=== PATIENT | male | born 1945 | race Caucasian/White ===

== ENCOUNTER 2024-11-09 12:21 | Emergency (ER) | payer MEDICARE, OTHER, SELFPAY ==
[2024-11-09 12:23] VITALS: BP 133/83
[2024-11-09 13:22] VITALS: BP 167/89
[2024-11-09 13:47] LABS: Hematocrit 38.3 % (39.0-52.0); Hemoglobin 12.9 g/dL (13.0-18.0); Mean Corp Hgb Conc. 33.7 g/dL (33.0-37.0); Mean Corpuscular Volume 93.4 fL (80.0-94.0); Nucleated Red Blood Cells % 0 % (-); Platelet Count 295 10^3/uL (130-400); Red Cell Dist. Width 13.6 % (11.5-14.5)
--- NOTE | 2024-11-09 13:48 | ED.GENMED ---
History of Present Illness
General
Chief Complaint: Throat Problem
Time Seen by Provider: 11/09/24 13:22
History of Present Illness
History of Present Illness:
Patient is a 79-year-old male with history of hyperlipidemia presenting to the emergency department with generalized weakness and fatigue. Patient states for the past year he has had no motivation and is not interested in activity. He states that
he is eating less. He feels weak. Intermittently will get lightheaded dizzy especially upon moving. He is trying to force himself to eat though his food intake has decreased. He only drinks a few glasses of water a day. No chest pain. No
shortness of breath. No nausea vomiting diarrhea. No abdominal pain. No numbness tingling. No weakness. Has not seen a primary care doctor in years.
Past History
Social History
Tobacco: Smoker
Personal:
Phy Exam
Physical Exam
Physical Exam:
GENERAL: in no acute distress
HEENT: normocephalic, extraocular movements intact, dry oral mucosa
NECK: normal inspection
RESPIRATORY: no respiratory distress, clear to auscultation bilaterally
CARDIOVASCULAR: regular rate and rhythm
ABDOMEN/: soft, non-distended, non-tender to palpation, no rebound or guarding
EXTREMITIES: non-tender, no edema/swelling
NEUROLOGIC: awake and alert, moves all extremities
SKIN: warm
Course
Orders/Labs/Results
Orders:
Orders
11/09/24 13:24
CMP [Comprehensive Metabolic Panel] Urgent
Complete Blood Count/With Diff Urgent
Magnesium Urgent
Comment: ADD ON
TSH Reflex To Free T4 Urgent
11/09/24 13:46
Add On- LAB Urgent
Tests Added?: Mg, TSH
Electrocardiogram (*1) Urgent
Reason for Study: Shortness of Breath
11/09/24 13:47
EKG- Treatment ONCE
Abnormal Lab Results
11/09/24
13:24
RBC 4.10 L 10^6/uL
(4.70-6.10)
Hgb 12.9 L g/dL
(13.0-18.0)
Hct 38.3 L %
(39.0-52.0)
MCH 31.5 H pg
(27.0-31.0)
Chloride 109 H mmol/L
(98-107)
BUN 21 H mg/dl
(9-20)
Glucose 106 H mg/dl
(70-99)
11/09/24 13:24
11/09/24 13:24
Vital Signs
Initial and Last Documented VS:
Initial Vital Signs
Temp Pulse Resp BP Pulse Ox
98.1 F 85 15 133/83 96
11/09/24 12:23 11/09/24 12:23 11/09/24 12:23 11/09/24 12:23 11/09/24 12:23
Last Documented Vital Signs
Temp Pulse Resp BP Pulse Ox
98.1 F 85 15 153/83 98
11/09/24 12:23 11/09/24 12:23 11/09/24 12:23 11/09/24 14:00 11/09/24 14:30
MDM/Problems Addressed
Differential Diagnosis Includes:
Patient is a 79-year-old man presenting to the emergency department with generalized weakness decreased p.o. and low energy for the past few months. On arrival vitals unremarkable exam does show dry oral mucosa. Differential consist of metabolic
derangement versus thyroid abnormality versus deconditioning. Is reassuring that patient's abdominal exam is benign. After shared decision making we will check blood work. Will give p.o. fluids.
*Pulse Oximetry
SaO2: 97
Patient hypoxic: no
*Critical Care Note
Total Time (30-74mins, 75-104mins- exclusive of procedures): Not Applicable
Update Note
Update Note:
Labs reassuring. Patient aware to follow-up with primary care doctor. He will try to increase his p.o. intake. We did discuss finding activities as well to fill-up his time again.
ED Attending Note
-
Portions of this chart may have been created with voice recognition software.� Occasional wrong word or��sound alike� substitutions may have occurred due to the inherent limitations of voice recognition software.
Discharge Plan
Departure
Patient Disposition: Home (Routine Discharge)
Date of Disposition: 11/09/24
Time of Disposition: 15:27
Patient with high blood pressure during this ER visit?: No
Discharge Problem:
Weakness, Fatigue
Instructions: Weakness - ED discharge instructions
Prescriptions:
No Action
No Current Medications
0
Referrals:
[facility] [Provider Group]
NONE,* [Family Provider, Internal Medicine]
Activity Restrictions/Additional Instructions:
You were seen in the Emergency Department today for generalized weakness. While you were here we performed blood work, which was reassuring.
We would like for you to follow up with your primary care physician for further evaluation. If you experience fever, worsening of your symptoms, or develop any other new or concerning symptoms, please return to the Emergency Department immediately.
Please see the attached sheet for additional information.
Interventions
Interventions:
*Risk Screen - Suicide Last Done: 11/09/24 12:23
*General Assessment Last Done: 11/09/24 12:23
*Neglect/Abuse Screening Last Done: 11/09/24 12:23
*ED COVID-19 Vaccine History Last Done: 11/09/24 12:23
ED- Pulmonary Assessment Last Done: 11/09/24 13:15
Discharge Date and Time
Print Language: Mandarin [place]
[2024-11-09 13:50] LABS: ALT (SGPT) 16 U/L (0-50); AST (SGOT) 22 U/L (17-59); Albumin 4.0 g/dl (3.5-5.0); Alkaline Phosphatase 57 U/L (38-126); Blood Urea Nitrogen 21 mg/dl (9-20); Calcium 9.4 mg/dl (8.4-10.2); Carbon Dioxide 25 mmol/L (22-30); Chloride 109 mmol/L (98-107); Glucose 106 mg/dl (70-99); Potassium 4.3 mmol/L (3.5-5.1); Sodium 138 mmol/L (135-145); Total Protein 6.7 g/dl (6.3-8.2); eGFR > 60.00
[2024-11-09 14:00] VITALS: BP 153/83
[2024-11-09 14:04] LABS: Magnesium 2.1 mg/dl (1.6-2.3)
[2024-11-09 15:00] VITALS: BP 141/76
== END 2024-11-09 15:56 | disposition home or self-care (01) ==
LOC: EMR 12:21
PROVIDERS: EMERGENCY PHYSICIAN Student in an Organized Health Care Education/Training Program
DX: R53.83 Other fatigue (principal); R53.1 Weakness; R42 Dizziness and giddiness; R63.0 Anorexia; E78.5 Hyperlipidemia, unspecified; F17.200 Nicotine dependence, unspecified, uncomplicated
CPT/HCPCS: 99283; 80053; 83735; 84443; 85025; 93005

== ENCOUNTER 2025-01-24 09:06 | Emergency (ER) | payer MEDICARE, OTHER, SELFPAY ==
[2025-01-24 09:15] VITALS: BP 118/72
--- NOTE | 2025-01-24 10:54 | ED.GENMED ---
History of Present Illness
General
Chief Complaint: Musculo-Skeletal Complaint
Source: patient
Exam Limitations: none
Time Seen by Provider: 01/24/25 10:20
Nursing documentation reviewed up to this point in time: agreed with
History of Present Illness
History of Present Illness:
79 yr. male presents to the ED for evaluation. Language line used. Patient reports for the past 4 days he has had pain to the right buttock area. He denies any injury. He does live alone has not taken any medicine for the pain. He denies any
trauma. He denies any radiation of pain. He denies any abdominal pain nausea vomiting fever chills. He denies any issues with urination. He is able to walk with the pain denies any increased pain with movement or walking .he reports he has'
hyperplasia of the prostate' diagnosed years ago. He has not been to a doctor in many years.
He lives alone.
Past History
Social History
Tobacco: Smoker
Personal:
Phy Exam
General Physical Exam
General Presentation: no apparent distress
General age: appears stated age
General Skin: warm and dry
General Habitus: elderly
General Mental: alert
General Hydration: appears well hydrated
Cardiovascular Exam
Cardiovascular Exam: regular rate/rhythm, no murmur and normal peripheral pulses
Pulmonary Exam
Pulmonary Exam: lungs clear and no respiratory distress
Neurological Exam
Neurological Exam: alert and oriented x3
Musculoskeletal Exam
Musculoskeletal Exam: full ROM and other (Normal inspection to back and buttocks mildly tender to the right lateral buttocks no erythema good range of motion full range of motion of bilateral hips)
Skin Exam
Skin Exam: normal color and warm/dry
Psychiatric Exam
Psychiatric Exam: normal mood/affect
Course
Orders/Labs/Results
Orders:
Orders
01/24/25 10:56
IV Insert/Care/Rem.- Treatment PRN
Acetaminophen [Tylenol] 650 mg PO NOW STA
Lidocaine [Lidocaine 4% Patch] 1 patch TOPICAL NOW STA
Apply Lidocaine patch(s) to:: right buttock
Hip, Right 2-3 Views [CR Hip - RT w/wo Pel 2-3 Vw*] Urgent
Comment:
Reason For Exam: pain
Include a pelvis x-ray?: Yes
Lumbar Spine Complete, 4 View [CR Lumbar Spine Comp Min 4 Vw*] Urgent
Comment:
Reason For Exam: pain
01/24/25 11:31
Complete Blood Count/With Diff Urgent
Comprehensive Metabolic Panel Urgent
01/24/25 12:30
Ketorolac [Toradol] 15 mg IV NOW STA
Abnormal Lab Results
01/24/25
11:31
RBC 4.24 L 10^6/uL
(4.70-6.10)
MCH 31.4 H pg
(27.0-31.0)
BUN 22 H mg/dl
(9-20)
01/24/25 11:31
01/24/25 11:31
Vital Signs
Initial and Last Documented VS:
Initial Vital Signs
Temp Pulse Resp BP Pulse Ox
98.5 F 82 18 118/72 95
01/24/25 09:15 01/24/25 09:15 01/24/25 09:15 01/24/25 09:15 01/24/25 09:15
Last Documented Vital Signs
Temp Pulse Resp BP Pulse Ox
98.5 F 65 16 121/70 98
01/24/25 09:15 01/24/25 13:51 01/24/25 13:51 01/24/25 13:51 01/24/25 13:51
MDM/Problems Addressed
Differential Diagnosis Includes:
Not limited to muscular back pain muscle sprain strain
MDM/Problems Addressed:
Symptoms are likely muscular. Patient points to his right posterior buttock region. no trauma no injury on exam. He has been able to ambulate here in the ER no acute distress as documented above language line was used for translation and patient
denies any injury no nausea vomiting fever chills chest pain shortness of breath no radiation of pain. No bowel or bladder incontinence normal labs. His x-rays lumbar spine hip were negative for acute findings positive degenerative disease.\\I did
check labs prior to giving patient Toradol as he reported he has not been to a doctor in years and his labs are unremarkable with normal kidney function.
Patient was given Tylenol lidocaine patch and Toradol will DC with [facility]
*Radiology
Radiology exam reviewed: radiology read reviewed
*Pulse Oximetry
SaO2: 95
Oxygen Mode of Delivery: Room air
Patient hypoxic: no
*Critical Care Note
Total Time (30-74mins, 75-104mins- exclusive of procedures): Not Applicable
ED Attending Note
-
Portions of this chart may have been created with voice recognition software.� Occasional wrong word or��sound alike� substitutions may have occurred due to the inherent limitations of voice recognition software.
Discharge Plan
Departure
Patient Disposition: Home (Routine Discharge)
Date of Disposition: 01/24/25
Time of Disposition: 13:43
Patient with high blood pressure during this ER visit?: Yes
Condition: Fair
Covid-19: Not Applicable
Discharge Problem:
Muscle pain
Instructions: Muscle and Bone Pain (DC), BLOOD PRESSURE
Prescriptions:
New
lidocaine 5 % adhesive patch,medicated
1 patch topical DAILY Qty: 15 0RF
Referrals:
[facility] [Provider Group]
UNKNOWN - PT DOES,NOT KNOW [Family Provider]
Activity Restrictions/Additional Instructions:
Tylenol or ibuprofen as needed for pain.
A prescription for lidocaine patches sent to your pharmacy take as directed. Follow-up with [facility] in the next 2 days call today to make an appointment return if any worsening of symptoms.
Interventions
Interventions:
*Risk Screen - Suicide Last Done: 01/24/25 09:15
*General Assessment Last Done: 01/24/25 09:15
*Neglect/Abuse Screening Last Done: 01/24/25 09:15
*ED- Fall Risk Assessment Last Done: 01/24/25 13:51
*ED COVID-19 Vaccine History Last Done: 01/24/25 13:51
*Nursing Disposition Last Done: 01/24/25 13:51
ED- Cardiac Assessment Last Done: 01/24/25 11:27
ED-Musculoskeletal Assessment Last Done: 01/24/25 11:27
ED- Neurological Assessment Last Done: 01/24/25 11:27
ED- Pulmonary Assessment Last Done: 01/24/25 11:27
Discharge Date and Time
Discharge Date/Time: 01/24/25 14:24
Print Language: Mandarin Thai
[2025-01-24] MEDS: TYLENOL 650 MG PO (11:24)
[2025-01-24] MEDS: LIDOCAINE 4% PATCH 1 PATCH TOPICAL (11:25)
[2025-01-24 11:31] VITALS: BP 162/85
[2025-01-24 11:46] LABS: Hematocrit 39.7 % (39.0-52.0); Hemoglobin 13.3 g/dL (13.0-18.0); Mean Corp Hgb Conc. 33.5 g/dL (33.0-37.0); Mean Corpuscular Volume 93.6 fL (80.0-94.0); Nucleated Red Blood Cells % 0 % (-); Platelet Count 245 10^3/uL (130-400); Red Cell Dist. Width 13.4 % (11.5-14.5)
[2025-01-24 12:14] LABS: ALT (SGPT) 16 U/L (0-50); AST (SGOT) 24 U/L (17-59); Albumin 4.2 g/dl (3.5-5.0); Alkaline Phosphatase 45 U/L (38-126); Blood Urea Nitrogen 22 mg/dl (9-20); Calcium 9.5 mg/dl (8.4-10.2); Carbon Dioxide 26 mmol/L (22-30); Chloride 107 mmol/L (98-107); Glucose 84 mg/dl (70-99); Potassium 4.5 mmol/L (3.5-5.1); Sodium 137 mmol/L (135-145); Total Protein 7.1 g/dl (6.3-8.2); eGFR > 60.00
[2025-01-24] MEDS: TORADOL 15 MG IV (12:40)
[2025-01-24 13:51] VITALS: BP 121/70
--- NOTE | 2025-01-24 14:26 | CM ---
Received call from ED nurse Apryl requesting Lyft set up for pt. Pt has [place] to pay for taxi but no taxi available. He does not have credit card for Lyft. Lyft arranged, pt walked out to front entrance. dedicated truck driver arrived and transported pt home.
== END 2025-01-24 14:24 | disposition home or self-care (01) ==
LOC: EMR 09:06
PROVIDERS: Nurse Practitioner; EMERGENCY PHYSICIAN Student in an Organized Health Care Education/Training Program
DX: M79.18 Myalgia, other site (principal); F17.200 Nicotine dependence, unspecified, uncomplicated; M51.369 Other intervertebral disc degeneration, lumbar region without mention of lumbar back pain or lower extremity pain
CPT/HCPCS: 96374; 99284; 72110; 73502; 80053; 85025